=== PATIENT | female | born 1990 | race Caucasian/White ===

== ENCOUNTER 2016-08-10 08:17 | Emergency (ER) | payer SELFPAY ==
[~2016-08-10] VITALS: Ht 170.2 cm; Wt 69.0 kg
[2016-08-10 08:37] VITALS: BP 111/74
[2016-08-10] MEDS ORDERED: DIPH,PERTUSS(ACELL),TET VAC/PF 0.5 ML IM-VACC ONE ×2 (09:00→12:01)
[2016-08-10] MEDS ORDERED: SODIUM CHLORIDE 0.9% 1,000ML IVBOLUS ONE (09:00)
[2016-08-10] MEDS ORDERED: SODIUM CHLORIDE FLUSH 10ML SYR IVF ONE (09:00)
[2016-08-10 09:17] LABS: HEMOGLOBIN 15.4 g/dL (11.7-16.4)
[2016-08-10 09:27] LABS: ASPARTATE AMINO TRANSFERASE 14 U/L (15-37); BLOOD UREA NITROGEN 12 mg/dL (7-18)
[2016-08-10] MEDS ORDERED: HYDROcodone/APAP 5/325 TABLET PO ONE (10:00)
[2016-08-10] MEDS ORDERED: BACITRACIN ZINC OINT 500U/GM, 0.9 GM ONE (10:04)
[2016-08-10] MEDS ORDERED: HYDROcodone/APAP 5/325 TABLET ONE (10:27)
== END 2016-08-10 12:38 | disposition home or self-care (01) ==
LOC: ED 12:10
DX: R55 Syncope and collapse (principal); S09.90XA Unspecified injury of head, initial encounter; L25.9 Unspecified contact dermatitis, unspecified cause; X58.XXXA Exposure to other specified factors, initial encounter; Y93.89 Activity, other specified; Y92.89 Other specified places as the place of occurrence of the external cause; Y99.9 Unspecified external cause status
CPT/HCPCS: 36415; 70450; 70486; 72125; 73610; 73630; 80053; 84484; 84703; 85025; 90471; 90715; 93005; 96360; 99285; J7030

== ENCOUNTER 2016-08-27 14:29 | Emergency (ER) | payer SELFPAY ==
[2016-08-27] MEDS ORDERED: PLEASE ENTER HEIGHT AND WEIGHT MC SCH (16:24)
[2016-08-27] MEDS ORDERED: ACETAMINOPHEN 325 MG TABLET PO ONE (16:30)
[2016-08-27] MEDS ORDERED: ONDANSETRON ODT 4 MG PO ONE (16:30)
== END 2016-08-27 16:20 | disposition home or self-care (01) ==
LOC: ED 16:14
DX: L02.414 Cutaneous abscess of left upper limb (principal); Z53.21 Procedure and treatment not carried out due to patient leaving prior to being seen by health care provider

== ENCOUNTER 2016-09-06 05:56 | Emergency (ER) | payer SELFPAY ==
[~2016-09-06] VITALS: Ht 165.1 cm; Wt 77.1 kg
[2016-09-06 05:58] VITALS: BP 125/82
[2016-09-06] MEDS ORDERED: PROPARACAINE OPHTH 0.5%, 15ML ONE (06:06)
[2016-09-06] MEDS ORDERED: FLUORESCEIN OPHTHALMIC 1 MG STRIP ONE (06:06)
== END 2016-09-06 07:22 | disposition home or self-care (01) ==
LOC: ED 07:05
DX: S02.81XA Fracture of other specified skull and facial bones, right side, initial encounter for closed fracture (principal); H11.31 Conjunctival hemorrhage, right eye; Z88.6 Allergy status to analgesic agent; W19.XXXA Unspecified fall, initial encounter; Y93.89 Activity, other specified; Y92.89 Other specified places as the place of occurrence of the external cause; Y99.9 Unspecified external cause status
CPT/HCPCS: 70486; 99284

== ENCOUNTER 2016-09-17 08:22 | Emergency (ER) | payer SELFPAY ==
[~2016-09-17] VITALS: Ht 165.1 cm; Wt 75.0 kg
[2016-09-17 08:30] VITALS: BP 120/78
[2016-09-17] MEDS ORDERED: PHENAZOPYRIDINE 200 MG TABLET ONE (09:28)
[2016-09-17] MEDS ORDERED: PHENAZOPYRIDINE 200 MG TABLET PO ONE (09:30)
[2016-09-17 09:40] LABS: HCG UR OBC PASS
[2016-09-17] MEDS ORDERED: CEFTRIAXONE 250 MG ONE (10:51)
[2016-09-17] MEDS ORDERED: LIDOCAINE 1%, 20ML ONE (10:51)
[2016-09-17] MEDS ORDERED: AZITHROMYCIN 500 MG TABLET ONE (10:51)
[2016-09-17] MEDS ORDERED: CEFTRIAXONE 250 MG IM ONE (11:00)
[2016-09-17] MEDS ORDERED: AZITHROMYCIN 500 MG TABLET PO ONE (11:00)
== END 2016-09-17 11:36 | disposition home or self-care (01) ==
LOC: ED 09:21
DX: R30.0 Dysuria (principal); S30.1XXA Contusion of abdominal wall, initial encounter; Z88.1 Allergy status to other antibiotic agents; Z88.6 Allergy status to analgesic agent; F10.120 Alcohol abuse with intoxication, uncomplicated; F17.210 Nicotine dependence, cigarettes, uncomplicated; X58.XXXA Exposure to other specified factors, initial encounter; Y93.89 Activity, other specified; Y99.8 Other external cause status; Y92.89 Other specified places as the place of occurrence of the external cause
CPT/HCPCS: 71101; 81003; 81025; 96372; 99285; J0696

== ENCOUNTER 2016-11-01 03:39 | Emergency (ER) | payer MEDICAID ==
[~2016-11-01] VITALS: Ht 165.1 cm; Wt 73.0 kg
[2016-11-01] MEDS ORDERED: ONDANSETRON 2MG/ML, 2ML ONE (04:14)
[2016-11-01] MEDS ORDERED: KETOROLAC 30 MG/1 ML ONE ×2 (04:14→04:36)
[2016-11-01 04:26] LABS: DAU SCREEN DISCLAIMER
[2016-11-01] MEDS ORDERED: KETOROLAC 30 MG/1 ML IVPush ONE (04:30)
[2016-11-01] MEDS ORDERED: SODIUM CHLORIDE 0.9% 1,000ML IVBOLUS ONE (04:30)
[2016-11-01] MEDS ORDERED: ONDANSETRON 2MG/ML, 2ML IVPush ONE (04:30)
[2016-11-01] MEDS ORDERED: ONDANSETRON ODT 4 MG ONE (04:36)
[2016-11-01 04:49] LABS: HCG UR OBC PASS
[2016-11-01 05:10] LABS: BLOOD UREA NITROGEN 6 mg/dL (7-18)
[2016-11-01 05:13] LABS: ASPARTATE AMINO TRANSFERASE 8 U/L (15-37)
[2016-11-01 07:26] VITALS: BP 101/46
[2016-11-01] MEDS ORDERED: KETOROLAC 30 MG/1 ML IM ONE (07:30)
[2016-11-01] MEDS ORDERED: ONDANSETRON ODT 4 MG PO ONE (07:30)
[2016-11-04] MEDS ORDERED: AZIT250T PO (10:29)
[2016-11-04] MEDS ORDERED: CEFD300C37 PO (10:29)
== END 2016-11-01 07:28 | disposition home or self-care (01) ==
LOC: ED 05:27
DX: R50.9 Fever, unspecified (principal); F15.129 Other stimulant abuse with intoxication, unspecified
CPT/HCPCS: 36415; 71010; 76700; 80053; 80307; 81003; 81025; 83690; 85025; 96372; 99285; J1885; Q0162

== ENCOUNTER 2016-11-06 20:20 | Emergency (ER) | payer MEDICAID ==
[~2016-11-06 20:20] MED LIST: AZIT250T PO; CEFD300C37 PO
== END 2016-11-06 21:06 | disposition left against medical advice (07) ==
LOC: ED 21:00
DX: Z53.21 Procedure and treatment not carried out due to patient leaving prior to being seen by health care provider (principal)

== ENCOUNTER 2017-10-21 11:33 | Emergency (ER) | payer MEDICAID ==
[~2017-10-21] VITALS: Ht 165.1 cm; Wt 74.8 kg
[2017-10-21 11:35] VITALS: BP 102/68
[2017-10-21 12:59] LABS: MICROSCOPIC INDICATED
[2017-10-21 13:00] LABS: CULTURE INDICATED? YES
[2017-10-21] MEDS ORDERED: CEFTRIAXONE 250 MG IM ONE (13:00)
[2017-10-21] MEDS ORDERED: AZITHROMYCIN 500 MG TABLET PO ONE (13:00)
[2017-10-21] MEDS ORDERED: AZITHROMYCIN 500 MG TABLET ONE (13:02)
[2017-10-21] MEDS ORDERED: CEFTRIAXONE 250 MG ONE (13:03)
== END 2017-10-21 14:40 | disposition home or self-care (01) ==
LOC: ED 14:18
DX: N39.0 Urinary tract infection, site not specified (principal)
CPT/HCPCS: 81001; 87077; 87086; 87186; 96372; 99284; J0696

== ENCOUNTER 2018-03-05 11:15 | Emergency (ER) | payer MEDICAID ==
[~2018-03-05] VITALS: Ht 165.1 cm; Wt 76.6 kg
[2018-03-05] MEDS ORDERED: PIPERACILLIN/TAZO/PMX 3.375GM 50 ML IVPB ONE (12:00)
[2018-03-05] MEDS ORDERED: ACETAMINOPHEN 500 MG TABLET PO ONE (12:00)
[2018-03-05] MEDS ORDERED: MORPHINE SULFATE 4 MG/ML, 1ML IVPush PRN (12:00)
[2018-03-05] MEDS ORDERED: SODIUM CHLORIDE 0.9% 1,000ML IVBOLUS ONE (12:00)
[2018-03-05] MEDS ORDERED: PIPERACILLIN/TAZO/PMX 3.375GM 50 ML ONE (12:27)
[2018-03-05] MEDS ORDERED: ACETAMINOPHEN 500 MG TABLET ONE (12:28)
[2018-03-05] MEDS ORDERED: MORPHINE SULFATE 4 MG/ML, 1ML ONE (12:28)
[2018-03-05] MEDS ORDERED: ACETAMINOPHEN 325 MG TABLET ONE (12:39)
[2018-03-05] MEDS ORDERED: ACETAMINOPHEN 325 MG TABLET PO ONE (13:00)
[2018-03-05 13:01] LABS: ALANINE AMINOTRANSFERASE 39 U/L (12-78); ALBUMIN 2.9 g/dL (3.4-5.0); ANION GAP 6 mmol/L (5-15); BASOPHILS % (AUTO) 0 % (0-1); CHLORIDE 104 mmol/L (98-107); CREATININE 0.63 mg/dL (0.55-1.02); EOSINOPHILS % (AUTO) 0 % (1-7); LYMPHOCYTES # (AUTO) 1.12 x10^3/uL (1-3.4); LYMPHOCYTES % (AUTO) 9 % (22-44); MD NO; MEAN CORPUSCULAR HEMOGLOBIN 29.2 pg (27.0-34.8); MEAN CORPUSCULAR HGB CONC 33.9 g/dL (32.4-35.8); MEAN PLATELET VOLUME 8.7 fL (7.4-10.4); MONOCYTES # (AUTO) 0.86 x10^3/uL (0.2-0.8); MONOCYTES % (AUTO) 7 % (2-9); NEUTROPHILS # (AUTO) 10.31 x10^3/uL (1.8-6.8); NEUTROPHILS % (AUTO) 84 % (42-75); PLATELET COUNT 208 x10^3/uL (130-400); RED BLOOD COUNT 4.32 x10^6/uL (3.82-5.3); RED CELL DISTRIBUTION WIDTH 13.1 % (9.6-15.2)
[2018-03-05 13:03] LABS: ALKALINE PHOSPHATASE 81 U/L (45-117); BILIRUBIN,TOTAL 1.1 mg/dL (0.2-1.0); TOTAL PROTEIN 6.7 g/dL (6.4-8.2)
[2018-03-05 14:18] LABS: MICROSCOPIC NOT IND
[2018-03-05 14:22] LABS: CULTURE INDICATED? NO
[2018-03-05 15:25] VITALS: BP 88/45
== END 2018-03-05 15:52 | disposition home or self-care (01) ==
LOC: ED 12:10
DX: L03.114 Cellulitis of left upper limb (principal); F15.10 Other stimulant abuse, uncomplicated; G89.29 Other chronic pain
CPT/HCPCS: 36415; 71045; 80053; 81003; 83605; 84145; 85025; 87040; 87077; 87186; 96365; 96366; 96375; 99285; J2543; J7030

== ENCOUNTER 2018-03-07 05:55 | Inpatient (IN) | payer MEDICAID ==
[~2018-03-07] VITALS: Ht 165.1 cm; Wt 77.9 kg
[2018-03-07] MEDS ORDERED: SODIUM CHLORIDE FLUSH 10ML SYR IVF ONE (06:30)
[2018-03-07] MEDS ORDERED: CEFTRIAXONE PMX 1GM/50ML 50 ML ONE (06:37)
[2018-03-07] MEDS ORDERED: CEFTRIAXONE 1,000 MG in SODIUM CHLORIDE 0.9% 50 ML IVPB ONE (07:00)
[2018-03-07 07:02] LABS: ALBUMIN 3.2 g/dL (3.4-5.0); ANION GAP 6 mmol/L (5-15); CALCIUM 8.2 mg/dL (8.5-10.1); CHLORIDE 108 mmol/L (98-107); CREATININE 0.69 mg/dL (0.55-1.02)
[2018-03-07 07:13] LABS: BASOPHILS # (AUTO) 0.03 x10^3/uL (0-0.1); BASOPHILS % (AUTO) 1 % (0-1); EOSINOPHILS # (AUTO) 0.34 x10^3/uL (0-0.4); EOSINOPHILS % (AUTO) 5 % (1-7); LYMPHOCYTES # (AUTO) 2.25 x10^3/uL (1-3.4); LYMPHOCYTES % (AUTO) 35 % (22-44); MD NO; MEAN CORPUSCULAR HEMOGLOBIN 28.7 pg (27.0-34.8); MEAN CORPUSCULAR HGB CONC 33.4 g/dL (32.4-35.8); MEAN PLATELET VOLUME 8.7 fL (7.4-10.4); MONOCYTES # (AUTO) 0.72 x10^3/uL (0.2-0.8); MONOCYTES % (AUTO) 11 % (2-9); NEUTROPHILS # (AUTO) 3.02 x10^3/uL (1.8-6.8); NEUTROPHILS % (AUTO) 47 % (42-75); PLATELET COUNT 207 x10^3/uL (130-400); RED BLOOD COUNT 4.54 x10^6/uL (3.82-5.3); RED CELL DISTRIBUTION WIDTH 13.8 % (9.6-15.2)
[2018-03-07] MEDS ORDERED: SODIUM CHLORIDE 0.9% 1,000 ML IV SCH (10:32)
[2018-03-07] MEDS ORDERED: ONDANSETRON 2MG/ML, 2ML IVPush PRN (11:00)
[2018-03-07] MEDS ORDERED: KETOROLAC 30 MG/1 ML IV PRN (11:00)
[2018-03-07] MEDS ORDERED: GUAIFENESIN/DM 200-20MG, 10ML UDC PO PRN (11:00)
[2018-03-07] MEDS ORDERED: DOCUSATE 100 MG CAPSULE PO PRN (11:00)
[2018-03-07] MEDS ORDERED: ACETAMINOPHEN 325 MG TABLET PO PRN (11:00)
[2018-03-07] MEDS ORDERED: hydrALAzine 20 MG/ML, 1ML IVPush PRN (11:00)
[2018-03-07] MEDS ORDERED: NICOTINE 14MG/24 HR PATCH.TD24 TD SCH (11:00)
[2018-03-07 11:13] VITALS: BP 101/68
[2018-03-07 14:30] VITALS: BP 102/65
[2018-03-07 15:59] LABS: HCG UR SG 1.018 (1.003-1.030); MICROSCOPIC AUTO
[2018-03-07 16:05] LABS: CULTURE INDICATED? NO
[2018-03-07] MEDS ORDERED: CEFTRIAXONE PMX 2GM/50ML 50 ML IV SCH (18:00)
[2018-03-07 19:19] VITALS: BP 118/77
[2018-03-07] MEDS ORDERED: METHADONE 10 MG TABLET PO SCH (21:00)
== END 2018-03-07 21:21 | disposition left against medical advice (07) | DRG 603 ==
LOC: ED 06:50 → 4WST 08:50
PROVIDERS: ADMIT Internal Medicine; ATTEND Internal Medicine
DX: L03.114 Cellulitis of left upper limb (principal); F11.23 Opioid dependence with withdrawal; R78.81 Bacteremia; L02.414 Cutaneous abscess of left upper limb; R30.0 Dysuria; B96.89 Other specified bacterial agents as the cause of diseases classified elsewhere; R23.4 Changes in skin texture; F17.210 Nicotine dependence, cigarettes, uncomplicated; Z53.21 Procedure and treatment not carried out due to patient leaving prior to being seen by health care provider; Z88.1 Allergy status to other antibiotic agents; Z59.0 Homelessness; Z88.5 Allergy status to narcotic agent; Z82.49 Family history of ischemic heart disease and other diseases of the circulatory system
CPT/HCPCS: 36415; 80048; 81001; 81025; 82040; 83605; 85025; 87040; 96365; G0378; J0696; J1885; J7030

== ENCOUNTER 2018-03-10 12:26 | Inpatient (IN) | payer MEDICAID ==
[~2018-03-10] VITALS: Ht 165.1 cm; Wt 80.2 kg
[2018-03-10 13:44] LABS: MEAN CORPUSCULAR HEMOGLOBIN 29.7 pg (27.0-34.8); MEAN CORPUSCULAR HGB CONC 34.4 g/dL (32.4-35.8); MEAN CORPUSCULAR VOLUME 86.3 fL (80-100); MEAN PLATELET VOLUME 8.4 fL (7.4-10.4); PLATELET COUNT 275 x10^3/uL (130-400); RED BLOOD COUNT 4.41 x10^6/uL (3.82-5.3); RED CELL DISTRIBUTION WIDTH 13.3 % (9.6-15.2)
[2018-03-10 13:51] LABS: ALBUMIN 3.1 g/dL (3.4-5.0); ANION GAP 7 mmol/L (5-15); CALCIUM 8.4 mg/dL (8.5-10.1); CHLORIDE 107 mmol/L (98-107)
[2018-03-10 13:56] LABS: ALANINE AMINOTRANSFERASE 28 U/L (12-78); ALKALINE PHOSPHATASE 93 U/L (45-117); BILIRUBIN,TOTAL 0.7 mg/dL (0.2-1.0); CREATININE 0.73 mg/dL (0.55-1.02); TOTAL PROTEIN 7.4 g/dL (6.4-8.2)
[2018-03-10 14:08] LABS: BASOPHILS # (AUTO) 0.03 x10^3/uL (0-0.1); BASOPHILS % (AUTO) 1 % (0-1); EOSINOPHILS # (AUTO) 0.11 x10^3/uL (0-0.4); EOSINOPHILS % (AUTO) 2 % (1-7); LYMPHOCYTES # (AUTO) 1.51 x10^3/uL (1-3.4); LYMPHOCYTES % (AUTO) 31 % (22-44); MD SCAN; MONOCYTES # (AUTO) 0.33 x10^3/uL (0.2-0.8); MONOCYTES % (AUTO) 7 % (2-9); NEUTROPHILS # (AUTO) 2.84 x10^3/uL (1.8-6.8); NEUTROPHILS % (AUTO) 59 % (42-75)
[2018-03-10] MEDS ORDERED: VANCOMYCIN 1,500 MG in SODIUM CHLORIDE 0.9% 250 ML IV ONE (16:00)
[2018-03-10] MEDS ORDERED: VANCOMYCIN PER PHARMACY MC ONE (16:00)
[2018-03-10] MEDS ORDERED: OMNIPAQUE 350 MG/ML, 100ML BOTTLE ONE (17:06)
[2018-03-10] MEDS ORDERED: IBUPROFEN 600 MG TABLET PO PRN (18:30)
[2018-03-10] MEDS ORDERED: ONDANSETRON ODT 4 MG PO PRN (18:30)
[2018-03-10] MEDS ORDERED: ACETAMINOPHEN 325 MG TABLET PO PRN (18:30)
[2018-03-10] MEDS ORDERED: DOCUSATE 100 MG CAPSULE PO PRN (18:30)
[2018-03-10] MEDS ORDERED: DIPHENHYDRAMINE 25 MG CAPSULE PO PRN (18:30)
[2018-03-10 19:12] VITALS: BP 112/75
[2018-03-10] MEDS: CEFTRIAXONE PMX 1GM/50ML 50 ML IV SCH (19:59)
[2018-03-11] MEDS ORDERED: NICOTINE 21 MG/24 HR PATCH.TD24 TD ONE (00:30)
[2018-03-11] MEDS: METHADONE 10 MG TABLET PO PRN ×2 (00:36→08:08)
[2018-03-11 02:13] VITALS: BP 108/69
[2018-03-11 06:52] VITALS: BP 109/71
[2018-03-11] MEDS: CEFTRIAXONE PMX 1GM/50ML 50 ML IV SCH ×2 (08:08→19:29)
[2018-03-11] MEDS ORDERED: VANCOMYCIN PER PHARMACY MC PRN (08:30)
[2018-03-11] MEDS ORDERED: PHARMACOKINETIC MONITORING MC PRN (09:00)
[2018-03-11] MEDS ORDERED: PHARMACOKINETIC CONSULTATION MC ONE (09:00)
[2018-03-11] MEDS ORDERED: VANCOMYCIN 1,600 MG in SODIUM CHLORIDE 0.9% 250 ML IV SCH (09:00)
[2018-03-11] MEDS ORDERED: DIPHENHYDRAMINE 25 MG CAPSULE PO PRN (11:00)
[2018-03-11 13:45] VITALS: BP 114/77
[2018-03-11 19:23] VITALS: BP 108/70
== END 2018-03-11 20:50 | disposition left against medical advice (07) | DRG 603 ==
LOC: ED 16:31 → EDIP 17:22 → 3NE 18:06
PROVIDERS: ADMIT Internal Medicine; ATTEND Internal Medicine
DX: L03.114 Cellulitis of left upper limb (principal); N39.0 Urinary tract infection, site not specified; F11.23 Opioid dependence with withdrawal; R78.81 Bacteremia; B96.20 Unspecified Escherichia coli [E. coli] as the cause of diseases classified elsewhere; F17.200 Nicotine dependence, unspecified, uncomplicated; I80.9 Phlebitis and thrombophlebitis of unspecified site; F19.10 Other psychoactive substance abuse, uncomplicated; Z53.21 Procedure and treatment not carried out due to patient leaving prior to being seen by health care provider; Z88.1 Allergy status to other antibiotic agents; Z82.49 Family history of ischemic heart disease and other diseases of the circulatory system; Z88.5 Allergy status to narcotic agent
CPT/HCPCS: 36415; 80053; 83605; 84145; 85025; 87040; 96365; G0378; J0696; J3370; Q9967; J7050; Q0163

== ENCOUNTER 2018-07-31 13:19 | Emergency (ER) | payer MEDICAID ==
[~2018-07-31] VITALS: Ht 165.1 cm; Wt 69.0 kg
[2018-07-31] MEDS ORDERED: SODIUM CHLORIDE 0.9% 1,000 ML IV ONE (13:39)
--- NOTE | 2018-07-31 13:43 | NUR ---
PT GUIDO BERGERON FROM THE BUS STATION FOR HEADACHE. PT WITH HX: HEROIN ABUSE. PT STATED SHE LAST USED HEROIN YESTERDAY. PT VERY DROWSY. PT PLACED ON BP AND CONT. PULSE OXIMETER. ASSESSMENT COMPLETED. MD AT BEDSIDE.
[2018-07-31] MEDS ORDERED: BUPRENORPHINE/NALOXONE 8-2MG SL SCH (13:54)
[2018-07-31] MEDS ORDERED: SODIUM CHLORIDE 0.9% 1,000ML IVBOLUS ONE (14:00)
[2018-07-31] MEDS ORDERED: SODIUM CHLORIDE FLUSH 10ML SYR IVF ONE (14:00)
[2018-07-31] MEDS ORDERED: PLEASE ENTER HEIGHT AND WEIGHT MC SCH (14:00)
[2018-07-31] MEDS ORDERED: ONDANSETRON 2MG/ML, 2ML IVPush ONE (14:00)
[2018-07-31 14:47] LABS: BASOPHILS # (AUTO) 0.01 x10^3/uL (0-0.1); BASOPHILS % (AUTO) 0 % (0-1); EOSINOPHILS # (AUTO) 0.03 x10^3/uL (0-0.4); EOSINOPHILS % (AUTO) 1 % (1-7); LYMPHOCYTES # (AUTO) 0.72 x10^3/uL (1-3.4); LYMPHOCYTES % (AUTO) 16 % (22-44); MD NO; MEAN CORPUSCULAR HEMOGLOBIN 27.7 pg (27.0-34.8); MEAN CORPUSCULAR HGB CONC 33.2 g/dL (32.4-35.8); MEAN CORPUSCULAR VOLUME 83.6 fL (80-100); MEAN PLATELET VOLUME 8.7 fL (7.4-10.4); MONOCYTES # (AUTO) 0.06 x10^3/uL (0.2-0.8); MONOCYTES % (AUTO) 1 % (2-9); NEUTROPHILS # (AUTO) 3.79 x10^3/uL (1.8-6.8); NEUTROPHILS % (AUTO) 82 % (42-75); PLATELET COUNT 260 x10^3/uL (130-400); RED BLOOD COUNT 4.76 x10^6/uL (3.82-5.3); RED CELL DISTRIBUTION WIDTH 13.1 % (9.6-15.2)
--- NOTE | 2018-07-31 14:49 | NUR ---
PT TAKEN TO CT.
[2018-07-31 14:55] LABS: ALBUMIN 3.4 g/dL (3.4-5.0); ANION GAP 6 mmol/L (5-15); CALCIUM 8.4 mg/dL (8.5-10.1); CHLORIDE 107 mmol/L (98-107)
[2018-07-31] MEDS ORDERED: ONDANSETRON 2MG/ML, 2ML ONE (14:55)
--- NOTE | 2018-07-31 14:57 | NUR ---
SBAR report received from RN, Thea.
[2018-07-31 15:01] LABS: ALANINE AMINOTRANSFERASE 29 U/L (12-78); ALKALINE PHOSPHATASE 97 U/L (45-117); BILIRUBIN,TOTAL 0.8 mg/dL (0.2-1.0); CREATININE 0.87 mg/dL (0.55-1.02); TOTAL PROTEIN 7.4 g/dL (6.4-8.2)
[2018-07-31 15:02] LABS: ACETAMINOPHEN < 2 mcg/mL (10-30); SALICYLATE LEVEL < 1.7 mg/dL (2.8-20.0)
--- NOTE | 2018-07-31 15:06 | NUR ---
Pt medicaated per MAR, pt resting on gurney, c/o MAGDALENO when prompted, otherwise sleeping. Pt remains on monitors, VSS.
--- NOTE | 2018-07-31 15:08 | NUR ---
Pt aware of need for urine sample. Pt states "I can't pee right now."
--- NOTE | 2018-07-31 15:19 | NUR ---
Dr. Christian at bedside to discuss ED findings and POC.
[2018-07-31 15:53] VITALS: BP 123/78
--- NOTE | 2018-07-31 15:54 | NUR ---
Patient/Caregiver given discharge instructions and they have confirmed that they understand the instructions. Patient ambulatory with steady gait.
== END 2018-07-31 15:55 | disposition home or self-care (01) ==
LOC: ED 14:09
DX: G44.211 Episodic tension-type headache, intractable (principal); L03.113 Cellulitis of right upper limb; F11.20 Opioid dependence, uncomplicated; Z72.9 Problem related to lifestyle, unspecified; Z63.8 Other specified problems related to primary support group
CPT/HCPCS: 36415; 70450; 80053; 80307; 80329; 83605; 84145; 84703; 85025; 87040; 93005; 96374; 99284; J2405; J7030; G0480

== ENCOUNTER 2018-10-23 14:07 | Observation (INO) | payer MEDICAID ==
[~2018-10-23] VITALS: Ht 165.1 cm; Wt 72.7 kg
[2018-10-23] MEDS ORDERED: PROMETHAZINE 25 MG/ML, 1ML IM ONE (14:30)
[2018-10-23] MEDS ORDERED: SODIUM CHLORIDE FLUSH 10ML SYR IVF ONE (14:30)
[2018-10-23] MEDS ORDERED: SODIUM CHLORIDE 0.9% 1,000ML IVBOLUS ONE (14:30)
[2018-10-23] MEDS ORDERED: LOPERAMIDE 2 MG CAPSULE PO ONE (14:30)
[2018-10-23] MEDS ORDERED: PROMETHAZINE 25 MG/ML, 1ML ONE (14:31)
[2018-10-23] MEDS ORDERED: LOPERAMIDE 2 MG CAPSULE ONE (14:31)
[2018-10-23 14:37] LABS: BASOPHILS # (AUTO) 0.04 x10^3/uL (0-0.1); BASOPHILS % (AUTO) 0 % (0-1); EOSINOPHILS % (AUTO) 0 % (1-7); LYMPHOCYTES # (AUTO) 0.41 x10^3/uL (1-3.4); LYMPHOCYTES % (AUTO) 4 % (22-44); MD NO; MEAN CORPUSCULAR HEMOGLOBIN 27.6 pg (27.0-34.8); MEAN CORPUSCULAR HGB CONC 32.7 g/dL (32.4-35.8); MEAN CORPUSCULAR VOLUME 84.3 fL (80-100); MEAN PLATELET VOLUME 8.6 fL (7.4-10.4); MONOCYTES # (AUTO) 0.31 x10^3/uL (0.2-0.8); MONOCYTES % (AUTO) 3 % (2-9); NEUTROPHILS # (AUTO) 8.63 x10^3/uL (1.8-6.8); NEUTROPHILS % (AUTO) 92 % (42-75); PLATELET COUNT 190 x10^3/uL (130-400); RED BLOOD COUNT 4.21 x10^6/uL (3.82-5.3); RED CELL DISTRIBUTION WIDTH 14.1 % (9.6-15.2)
[2018-10-23 14:49] LABS: ALANINE AMINOTRANSFERASE 15 U/L (12-78); ALBUMIN 2.6 g/dL (3.4-5.0); ANION GAP 11 mmol/L (5-15); CALCIUM 8.1 mg/dL (8.5-10.1); CHLORIDE 100 mmol/L (98-107); CREATININE 1.08 mg/dL (0.55-1.02)
[2018-10-23 14:54] LABS: ALKALINE PHOSPHATASE 93 U/L (45-117); BILIRUBIN,TOTAL 0.7 mg/dL (0.2-1.0); TOTAL PROTEIN 7.5 g/dL (6.4-8.2)
[2018-10-23] MEDS ORDERED: POTASSIUM CHLORIDE 40 MEQ in SODIUM CHLORIDE 0.9% 500 ML IV ONE ×2 (15:00→16:30)
[2018-10-23] MEDS ORDERED: POTASSIUM CHLORIDE 10% 40 MEQ/30 ML UDC PO ONE (15:00)
--- NOTE | 2018-10-23 15:03 | NUR ---
K 2.5, NOTIFIED. PT TO BE ADMITTED
--- NOTE | 2018-10-23 15:46 | NUR ---
IV K STARTED @130ML/H, PT INCONTINENT OF STOOL AND URINE, PT CHANGED AND CLEANED
[2018-10-23] MEDS ORDERED: ACETAMINOPHEN 500 MG TABLET ONE (15:58)
[2018-10-23] MEDS ORDERED: ACETAMINOPHEN 500 MG TABLET PO ONE (16:00)
[2018-10-23 16:04] LABS: HCT (SEDRATE) 35.6 % (34.6-47.8)
--- NOTE | 2018-10-23 16:04 | NUR ---
hospitalist at bedside, report to chao sims
[2018-10-23] MEDS ORDERED: NS + 20MEQ KCL 1,000 ML IV SCH (16:17)
[2018-10-23] MEDS ORDERED: ONDANSETRON 2MG/ML, 2ML IVPush PRN (16:30)
[2018-10-23] MEDS ORDERED: BACLOFEN 10 MG TABLET PO SCH (16:30)
[2018-10-23] MEDS ORDERED: ACETAMINOPHEN 325 MG TABLET PO PRN (16:30)
[2018-10-23] MEDS ORDERED: hydrALAzine 20 MG/ML, 1ML IVPush PRN (16:30)
[2018-10-23 16:52] VITALS: BP 106/66
[2018-10-23] MEDS ORDERED: ENOXAPARIN 40 MG/0.4 ML SQ SCH (17:00)
[2018-10-24] MEDS ORDERED: PANTOPROZOLE 40MG TABLET PO SCH (07:30)
== END 2018-10-23 18:00 | disposition left against medical advice (07) ==
LOC: ED 14:41 → EDIP 15:16 → INTOOBSV 15:16 → SUATTDRO 15:31 → 4WST 16:22
PROVIDERS: ADMIT Internal Medicine; ATTEND Internal Medicine
DX: F11.23 Opioid dependence with withdrawal (principal); N17.0 Acute kidney failure with tubular necrosis; E87.6 Hypokalemia; F17.200 Nicotine dependence, unspecified, uncomplicated; R78.81 Bacteremia
CPT/HCPCS: 36415; 71045; 80053; 83605; 84703; 85025; 85651; 86140; 87040; 87077; 87147; 87186; 93005; 96365; 96366; 96372; 99291; G0378; J2550; J3480; J7030; J7040

== ENCOUNTER 2019-12-01 19:51 | Emergency (ER) | payer MEDICAID ==
[~2019-12-01] VITALS: Ht 165.1 cm; Wt 82.0 kg
[2019-12-01 20:01] VITALS: BP 127/46
[2019-12-01] MEDS ORDERED: IBUPROFEN 600 MG TABLET PO ONE (22:00)
--- NOTE | 2019-12-01 22:30 | NUR ---
crutches given pt teaching done,
== END 2019-12-01 22:32 | disposition home or self-care (01) ==
LOC: ED 20:56
DX: M79.661 Pain in right lower leg (principal); M79.672 Pain in left foot; Z88.1 Allergy status to other antibiotic agents; Z88.5 Allergy status to narcotic agent
CPT/HCPCS: 99284

== ENCOUNTER 2019-12-11 15:30 | Inpatient (IN) | payer MEDICAID ==
[~2019-12-11] VITALS: Ht 165.1 cm; Wt 87.5 kg
--- NOTE | 2019-12-11 15:51 | NUR ---
DISEASE CASE MANAGER RN: PT AMBULATORY WITH STEADY GAIT TO ROOM AT THIS TIME.. BRIA
--- NOTE | 2019-12-11 15:53 | NUR ---
THIS IS A 29 YEAR OLD FEMALE WHO LEFT AMA FROM [facility] TODAY DUE TO "THEY DONT TAKE CARE OF PATIENTS VERY WELL". PT C/O OF LT FOOT INFECTION. STATES +MRSA WD.
[2019-12-11] MEDS ORDERED: HYDROmorphone 2 MG/ML, 1ML ONE (16:27)
[2019-12-11] MEDS ORDERED: ONDANSETRON 2MG/ML, 2ML ONE (16:27)
[2019-12-11] MEDS ORDERED: SODIUM CHLORIDE FLUSH 10ML SYR IVF ONE (16:30)
[2019-12-11] MEDS ORDERED: ONDANSETRON 2MG/ML, 2ML IVPush ONE (16:30)
[2019-12-11] MEDS ORDERED: PIPERACILLIN/TAZO/PMX 3.375GM 50 ML IVPB ONE (16:30)
[2019-12-11] MEDS ORDERED: VANCOMYCIN 1,800 MG in SODIUM CHLORIDE 0.9% 250 ML IV ONE (16:30)
[2019-12-11] MEDS ORDERED: VANCOMYCIN PER PHARMACY MC ONE (16:30)
[2019-12-11] MEDS: HYDROmorphone 2 MG/ML, 1ML IVPush PRN ×2 (17:25→19:12)
[2019-12-11] MEDS ORDERED: ACETAMINOPHEN 325 MG TABLET PO PRN (17:30)
[2019-12-11] MEDS ORDERED: hydrALAzine 20 MG/ML, 1ML IVPush PRN (17:30)
[2019-12-11] MEDS ORDERED: ONDANSETRON 2MG/ML, 2ML IVPush PRN (17:30)
--- NOTE | 2019-12-11 17:46 | NUR ---
EJ ON RIGHT SIDE #20 PLACED WITH GOOD BLOOD RETURN, LABS AND BLOOD CULTURES DRAWN PRIOR TO ANTIBX. MEDICATED PER ORDERS PT STATES PAIN IS 10/10.
[2019-12-11 17:49] LABS: HCT (SEDRATE) 28.1 % (34.6-47.8)
[2019-12-11 17:49] LABS: BASOPHILS # (AUTO) 0.03 x10^3/uL (0-0.1); BASOPHILS % (AUTO) 0 % (0-1); EOSINOPHILS # (AUTO) 0.19 x10^3/uL (0-0.4); EOSINOPHILS % (AUTO) 1 % (1-7); LYMPHOCYTES # (AUTO) 2.03 x10^3/uL (1-3.4); LYMPHOCYTES % (AUTO) 15 % (22-44); MD NO; MEAN CORPUSCULAR HEMOGLOBIN 27.6 pg (27.0-34.8); MEAN CORPUSCULAR HGB CONC 32.5 g/dL (32.4-35.8); MEAN CORPUSCULAR VOLUME 84.7 fL (80-100); MEAN PLATELET VOLUME 8.5 fL (7.4-10.4); MONOCYTES # (AUTO) 0.62 x10^3/uL (0.2-0.8); MONOCYTES % (AUTO) 5 % (2-9); NEUTROPHILS # (AUTO) 10.82 x10^3/uL (1.8-6.8); NEUTROPHILS % (AUTO) 79 % (42-75); PLATELET COUNT 445 x10^3/uL (130-400); RED BLOOD COUNT 3.33 x10^6/uL (3.82-5.3); RED CELL DISTRIBUTION WIDTH 14.9 % (9.6-15.2)
[2019-12-11 18:00] LABS: ALBUMIN 2.3 g/dL (3.4-5.0); ANION GAP 7 mmol/L (5-15); CALCIUM 8.3 mg/dL (8.5-10.1); CHLORIDE 108 mmol/L (98-107); CREATININE 0.58 mg/dL (0.55-1.02)
--- NOTE | 2019-12-11 18:11 | NUR ---
REPORT BRIE QUINTANA, PLAN OF CARE DISCUSSED
[2019-12-11] MEDS: VANCOMYCIN PER PHARMACY MC SCH (19:00)
[2019-12-11] MEDS ORDERED: PHARMACOKINETIC MONITORING MC PRN (19:00)
[2019-12-11] MEDS ORDERED: PHARMACOKINETIC CONSULTATION MC ONE (19:00)
[2019-12-11 19:30] VITALS: BP 116/76
[2019-12-11] MEDS: KETOROLAC 30 MG/1 ML IV PRN (20:16)
[2019-12-11 21:15] LABS: AMPHETAMINE SCREEN, URINE Positive (Negative); BARBITURATE SCREEN, URINE Negative (Negative); BENZODIAZEPINE SCREEN, URINE Negative (Negative); CANNABINOID SCREEN, URINE Negative (Negative); COCAINE SCREEN, URINE Negative (Negative); METHADONE SCREEN, URINE Negative (Negative); OPIATE SCREEN, URINE Positive (Negative)
[2019-12-12 00:41] VITALS: BP 131/73
[2019-12-12] MEDS: KETOROLAC 30 MG/1 ML IV PRN ×2 (03:28→17:52)
[2019-12-12] MEDS: VANCOMYCIN 1,800 MG in SODIUM CHLORIDE 0.9% 250 ML IV SCH ×2 (05:21→17:52)
[2019-12-12 06:34] VITALS: BP 128/76
[2019-12-12 06:59] LABS: BASOPHILS # (AUTO) 0.03 x10^3/uL (0-0.1); BASOPHILS % (AUTO) 0 % (0-1); EOSINOPHILS # (AUTO) 0.35 x10^3/uL (0-0.4); EOSINOPHILS % (AUTO) 4 % (1-7); LYMPHOCYTES % (AUTO) 17 % (22-44); MD NO; MEAN CORPUSCULAR HEMOGLOBIN 27.7 pg (27.0-34.8); MEAN CORPUSCULAR HGB CONC 33.1 g/dL (32.4-35.8); MEAN CORPUSCULAR VOLUME 83.6 fL (80-100); MEAN PLATELET VOLUME 8.2 fL (7.4-10.4); MONOCYTES # (AUTO) 0.51 x10^3/uL (0.2-0.8); MONOCYTES % (AUTO) 5 % (2-9); NEUTROPHILS # (AUTO) 7.38 x10^3/uL (1.8-6.8); NEUTROPHILS % (AUTO) 74 % (42-75); PLATELET COUNT 419 x10^3/uL (130-400); RED BLOOD COUNT 3.29 x10^6/uL (3.82-5.3); RED CELL DISTRIBUTION WIDTH 14.6 % (9.6-15.2)
[2019-12-12 07:08] LABS: ANION GAP 8 mmol/L (5-15); CALCIUM 8.1 mg/dL (8.5-10.1); CHLORIDE 107 mmol/L (98-107); CREATININE 0.52 mg/dL (0.55-1.02)
[2019-12-12] MEDS: VANCOMYCIN PER PHARMACY MC SCH (07:34)
[2019-12-12] MEDS: morphine SULFATE 10 MG/ML, 1ML IVPush PRN ×2 (09:05→16:00)
[2019-12-12 13:25] VITALS: BP 112/65
[2019-12-12 22:34] VITALS: BP 110/54
[2019-12-13] MEDS: KETOROLAC 30 MG/1 ML IV PRN (01:01)
[2019-12-13 02:00] VITALS: BP 133/69
[2019-12-13] MEDS: morphine SULFATE 10 MG/ML, 1ML IVPush PRN (05:09)
[2019-12-13] MEDS: VANCOMYCIN 1,800 MG in SODIUM CHLORIDE 0.9% 250 ML IV SCH (05:21)
[2019-12-13] MEDS: VANCOMYCIN PER PHARMACY MC SCH (07:29)
== END 2019-12-13 08:25 | disposition left against medical advice (07) | DRG 539 ==
LOC: ED 16:28 → SUATTDRO 16:47 → EDIP 17:45 → 3N 18:34
PROVIDERS: ADMIT Hospitalist; ATTEND Hospitalist
DX: M86.172 Other acute osteomyelitis, left ankle and foot (principal); E43 Unspecified severe protein-calorie malnutrition; L03.116 Cellulitis of left lower limb; Z53.29 Procedure and treatment not carried out because of patient's decision for other reasons; F17.210 Nicotine dependence, cigarettes, uncomplicated; D72.829 Elevated white blood cell count, unspecified; F19.10 Other psychoactive substance abuse, uncomplicated; Z88.0 Allergy status to penicillin; Z88.5 Allergy status to narcotic agent; Z86.19 Personal history of other infectious and parasitic diseases; Z68.32 Body mass index [BMI] 32.0-32.9, adult
CPT/HCPCS: 36415; 36573; 80048; 80074; 80202; 80307; 82040; 83605; 85025; 85651; 86704; 86705; 86706; 86707; 86803; 87040; 87340; 87350; 87521; G0378; J1170; J1885; J2405; J3370; C1751; J2270; J7050

== ENCOUNTER 2021-01-09 18:14 | Inpatient (IN) | payer MEDICAID ==
[~2021-01-09] VITALS: Ht 165.1 cm; Wt 105.8 kg
[2021-01-09] MEDS ORDERED: ONDANSETRON 2MG/ML, 2ML ONE (18:17)
--- NOTE | 2021-01-09 18:26 | NUR ---
PT BIB EMS FOR HEROIN OD. PT WAS FOUND DOWN AND UNRESPONSIVE IN BATHROOM AT R. BYSTANDER STARTED CPR. EMS ARRIVED AND FOUND PT WITH 2 NEEDLES IN HER ARMS. EMS ADM 1MG NARCAN IN 2 0.5MG DOSES IM. PT HAD POSITIVE RESPONSE - BEGAN BREATHING ON HER OWN AND WOKE UP. PT ARRIVED ON 15 LITERS NON REBREATHER. PT IS 8 MONTHS . . LnD NURSE DOWN TO ASSESS FETUS - "THE BABY SEEMS TO BE DOING FINE" HR 155.
[2021-01-09] MEDS ORDERED: ONDANSETRON 2MG/ML, 2ML IVPush ONE (18:30)
[2021-01-09] MEDS ORDERED: ALBUTEROL/IPRATROPIUM 2.5MG/0.5MG, 3 ML NEB ONE (18:30)
[2021-01-09] MEDS ORDERED: SODIUM CHLORIDE 0.9% 1,000ML IVBOLUS ONE (18:30)
--- NOTE | 2021-01-09 18:30 | NUR ---
PT GIVEN BREATHING TX. TOLERATED WELL.
--- NOTE | 2021-01-09 18:31 | NUR ---
MOTHER CONNECTED TO MONITOR. LnD NURSE BEDSIDE
[2021-01-09] MEDS ORDERED: AZITHROMYCIN 500 MG in SODIUM CHLORIDE 0.9% 250 ML IV ONE (19:00)
[2021-01-09] MEDS ORDERED: CEFTRIAXONE 1,000 MG in DEXTROSE 5% 50 ML IVPB ONE (19:00)
[2021-01-09 19:07] LABS: BASOPHILS % (AUTO) 0 % (0-1); EOSINOPHILS % (AUTO) 1 % (1-7); LYMPHOCYTES % (AUTO) 13 % (22-44); MEAN CORPUSCULAR HEMOGLOBIN 25.8 pg (27.0-34.8); MEAN CORPUSCULAR HGB CONC 32.6 g/dL (32.4-35.8); MEAN PLATELET VOLUME 8.3 fL (7.4-10.4); MONOCYTES % (AUTO) 5 % (2-9); NEUTROPHILS % (AUTO) 81 % (42-75); PLATELET COUNT 282 x10^3/uL (130-400); RED BLOOD COUNT 3.29 x10^6/uL (3.82-5.3); RED CELL DISTRIBUTION WIDTH 14.9 % (9.6-15.2)
[2021-01-09 19:19] LABS: ALANINE AMINOTRANSFERASE 23 U/L (12-78); ALBUMIN 1.5 g/dL (3.4-5.0); ANION GAP 7 mmol/L (5-15); CALCIUM 7.9 mg/dL (8.5-10.1); CHLORIDE 110 mmol/L (98-107); CREATININE 0.57 mg/dL (0.55-1.02)
[2021-01-09 19:24] LABS: ALKALINE PHOSPHATASE 177 U/L (45-117); BILIRUBIN,TOTAL 0.4 mg/dL (0.2-1.0); TOTAL PROTEIN 5.9 g/dL (6.4-8.2)
[2021-01-09] MEDS ORDERED: LACTATED RINGERS 1,000 ML IVBOLUS ONE (19:30)
[2021-01-09 19:35] LABS: AMPHETAMINE SCREEN, URINE Positive (Negative); BARBITURATE SCREEN, URINE Negative (Negative); BENZODIAZEPINE SCREEN, URINE Negative (Negative); CANNABINOID SCREEN, URINE Negative (Negative); COCAINE SCREEN, URINE Negative (Negative); METHADONE SCREEN, URINE Negative (Negative); OPIATE SCREEN, URINE Positive (Negative)
--- NOTE | 2021-01-09 19:41 | NUR ---
fhr tracing taken up to Dr Mehta to read, fhts 160 with decreased variability, 10x10 decels with no accels, states pt needs continous monitoring, catagory 2 tracing, pt denies cramping
--- NOTE | 2021-01-09 20:21 | NUR ---
efm reapplied post Ultrasound, fhts 134
--- NOTE | 2021-01-09 20:30 | NUR ---
TP RN: TEST DESIGNER STATES PT IS APPROPRAITE FOR L&D FLOOR FOR LEVEL OF CARE. DR VENEGAS STATES PT DOES NOT NEED CARDIAC MONITORING, HOWEVER PT FETUS NEEDS CONTINUOUS FHT MONITORING. L&D WELDER BOILERMAKER NOTIFIED VIA PHONE.
--- NOTE | 2021-01-09 20:35 | NUR ---
Dr Friedman visits, efm tracing reviewed, baseline 130s, catagory II tracing with decreaced variability, 10x10 decels, 10x10 accels
[2021-01-09] MEDS ORDERED: LABETALOL 5MG/ML, 20ML IVPush PRN (21:00)
[2021-01-09] MEDS ORDERED: ACETAMINOPHEN 325 MG TABLET PO PRN (21:00)
[2021-01-09] MEDS ORDERED: ONDANSETRON ODT 4 MG PO PRN (21:00)
[2021-01-09] MEDS ORDERED: SODIUM CHLORIDE 0.9% 1,000ML IV ONE (21:00)
[2021-01-09] MEDS ORDERED: DOCUSATE 100 MG CAPSULE PO PRN (21:00)
[2021-01-09] MEDS ORDERED: ONDANSETRON 2MG/ML, 2ML IVPush PRN ×2 (21:00→22:00)
[2021-01-09] MEDS: LACTATED RINGERS 1,000 ML IV SCH (21:20)
[2021-01-09] MEDS: CEFTRIAXONE 1,000 MG in DEXTROSE 5% 50 ML IVPB SCH (21:50)
[2021-01-09] MEDS ORDERED: SODIUM CITRATE/CITRIC ACID 30 ML UDC PO PRN (22:00)
[2021-01-09] MEDS ORDERED: CALCIUM CARBONATE 500 MG TAB.CHEW PO PRN (22:00)
[2021-01-09] MEDS ORDERED: METOCLOPRAMIDE 5 MG/ML, 2ML IVPush PRN (22:00)
[2021-01-09] MEDS ORDERED: D5%-LACTATED RINGERS 1,000 ML IV SCH (22:00)
[2021-01-09] MEDS ORDERED: NEWBORN KIT ONE (22:08)
[2021-01-10] MEDS ORDERED: SODIUM CITRATE/CITRIC ACID 15 ML UDC ONE (01:23)
[2021-01-10] MEDS ORDERED: METOCLOPRAMIDE 5 MG/ML, 2ML IV ONE (01:30)
[2021-01-10] MEDS ORDERED: LACTATED RINGERS 1,000 ML IVBOLUS ONE (01:30)
[2021-01-10] MEDS ORDERED: SODIUM CITRATE/CITRIC ACID 30 ML UDC PO ONE (01:30)
[2021-01-10] MEDS ORDERED: ONDANSETRON 2MG/ML, 2ML ONE (01:46)
[2021-01-10] MEDS ORDERED: KETOROLAC 30 MG/1 ML ONE (01:46)
[2021-01-10] MEDS ORDERED: CEFAZOLIN 1,000 MG ONE (01:46)
[2021-01-10] MEDS ORDERED: FENTANYL PF 100 MCG/2ML ONE (01:46)
[2021-01-10] MEDS ORDERED: EPHEDRINE 50 MG/ML, 1ML ONE (01:46)
[2021-01-10] MEDS ORDERED: DEXAMETHASONE 4 MG/ML, 1ML ONE (01:46)
[2021-01-10] MEDS ORDERED: PHENYLEPHRINE 10 MG/ML ONE (01:46)
[2021-01-10] MEDS ORDERED: OXYTOCIN 10 UNITS/ML, 1ML ONE (01:46)
[2021-01-10] MEDS ORDERED: LABETALOL 5MG/ML, 20ML IV PRN (02:00)
[2021-01-10] MEDS ORDERED: MIDAZOLAM 1 MG/ML, 2ML IV PRN (02:00)
[2021-01-10] MEDS ORDERED: ALBUTEROL SULFATE 2.5 MG/3 ML NPPB PRN (02:00)
[2021-01-10] MEDS ORDERED: EPHEDRINE 50 MG/ML, 1ML IVPush PRN (02:00)
[2021-01-10] MEDS ORDERED: OXYcodone 5 MG/5 ML ORAL.SOL UDC PO PRN (02:00)
[2021-01-10] MEDS ORDERED: METOPROLOL 1 MG/ML, 5ML IV PRN (02:00)
[2021-01-10] MEDS ORDERED: PROMETHAZINE 25 MG/ML, 1ML IV PRN (02:00)
[2021-01-10] MEDS ORDERED: FENTANYL PF 100 MCG/2ML IV PRN (02:00)
[2021-01-10] MEDS ORDERED: hydrALAzine 20 MG/ML, 1ML IV PRN (02:00)
[2021-01-10] MEDS ORDERED: MEPERIDINE/PF 25MG/0.5ML IVPush PRN (02:00)
[2021-01-10] MEDS ORDERED: ALBUTEROL/IPRATROPIUM 2.5MG/0.5MG, 3 ML NPPB PRN (02:00)
[2021-01-10] MEDS ORDERED: HYDROcodone/APAP 7.5-325MG/15ML UDC PO PRN (02:00)
[2021-01-10] MEDS ORDERED: ONDANSETRON 2MG/ML, 2ML IVPush PRN (02:00)
[2021-01-10 04:37] LABS: MICROSCOPIC INDICATED
[2021-01-10] MEDS ORDERED: METHADONE ORAL.SOLN 1 MG/ML PO SCH (05:30)
[2021-01-10] MEDS ORDERED: METHADONE INTENSOL 10 MG/ML ORAL CONC ONE (05:32)
[2021-01-10] MEDS ORDERED: OXYcodone/APAP 5/325MG TABLET ONE (06:07)
[2021-01-10] MEDS: OXYcodone/APAP 5/325MG TABLET PO PRN ×2 (06:15→12:30)
[2021-01-10] MEDS ORDERED: OXYcodone/APAP 5/325MG TABLET PO ONE (06:30)
[2021-01-10] MEDS ORDERED: METHADONE INTENSOL 10 MG/ML ORAL CONC PO SCH (09:00)
[2021-01-10 11:22] LABS: ANION GAP 7 mmol/L (5-15); CALCIUM 7.8 mg/dL (8.5-10.1); CHLORIDE 111 mmol/L (98-107)
[2021-01-10 11:25] LABS: CREATININE 0.46 mg/dL (0.55-1.02)
[2021-01-10 12:22] LABS: BASOPHILS % (AUTO) 0 % (0-1); EOSINOPHILS % (AUTO) 0 % (1-7); LYMPHOCYTES % (AUTO) 14 % (22-44); MEAN CORPUSCULAR HEMOGLOBIN 25.6 pg (27.0-34.8); MEAN CORPUSCULAR HGB CONC 32.7 g/dL (32.4-35.8); MEAN PLATELET VOLUME 8.5 fL (7.4-10.4); MONOCYTES % (AUTO) 6 % (2-9); NEUTROPHILS % (AUTO) 79 % (42-75); PLATELET COUNT 231 x10^3/uL (130-400)
[2021-01-10] MEDS: LACTATED RINGERS 1,000 ML IV SCH (14:15)
[2021-01-10] MEDS: IRON SUCROSE COMPLEX 100MG/5ML IV SCH (14:27)
[2021-01-10] MEDS ORDERED: METHADONE 10 MG TABLET PO ONE (19:30)
[2021-01-10] MEDS: CEFTRIAXONE 1,000 MG in DEXTROSE 5% 50 ML IVPB SCH (21:35)
[2021-01-11] MEDS ORDERED: OXYcodone/APAP 10/325MG TABLET ONE (05:11)
[2021-01-11] MEDS ORDERED: SODIUM CITRATE/CITRIC ACID 15 ML UDC ONE (06:32)
[2021-01-11] MEDS ORDERED: CEFAZOLIN 1,000 MG ONE (06:34)
[2021-01-11] MEDS ORDERED: FENTANYL PF 100 MCG/2ML ONE ×4 (06:37→08:59)
[2021-01-11] MEDS ORDERED: SUCCINYLCHOLINE 20 MG/ML, 10ML ONE (06:45)
[2021-01-11] MEDS ORDERED: KETAMINE 10 MG/ML, 20ML ONE (07:35)
[2021-01-11] MEDS ORDERED: ALBUTEROL SULFATE 2.5 MG/3 ML ONE (08:26)
[2021-01-11] MEDS ORDERED: OXYcodone IR 5MG TABLET PO PRN (08:30)
[2021-01-11] MEDS ORDERED: MISOPROSTOL 200 MCG TABLET PR PRN (08:30)
[2021-01-11] MEDS ORDERED: morphine SULFATE 10 MG/ML, 1ML IVPush PRN (08:30)
[2021-01-11] MEDS ORDERED: LACTATED RINGERS 1,000 ML IV SCH ×2 (08:30)
[2021-01-11] MEDS ORDERED: TRANEXAMIC ACID 1,000 MG in SODIUM CHLORIDE 0.9% 100 ML IVPB ONE (08:30)
[2021-01-11] MEDS ORDERED: DOCUSATE 100 MG CAPSULE PO PRN (08:30)
[2021-01-11] MEDS ORDERED: CARBOPROST TROMETHAMINE 250 MCG/ML, 1ML IM PRN (08:30)
[2021-01-11] MEDS ORDERED: METHYLERGONOVINE 0.2 MG/ML IM PRN (08:30)
[2021-01-11] MEDS ORDERED: ONDANSETRON 2MG/ML, 2ML IV PRN (08:30)
[2021-01-11] MEDS ORDERED: SIMETHICONE 80 MG CHEW TAB PO PRN (08:30)
[2021-01-11] MEDS: METHADONE INTENSOL 10 MG/ML ORAL CONC PO SCH ×2 (09:00→09:16)
[2021-01-11] MEDS: PRENATAL VIT/IRON/FA 1 EACH TABLET PO SCH (09:00)
[2021-01-11] MEDS: METHADONE 40 MG TABLET.SOL PO SCH ×2 (09:16→12:14)
[2021-01-11] MEDS ORDERED: HYDROmorphone 2 MG/ML, 1ML ONE (09:23)
[2021-01-11] MEDS: HYDROmorphone 2 MG/ML, 1ML IVPush PRN ×2 (09:26→10:01)
[2021-01-11] MEDS: OXYTOCIN 30U/ 0.9% NaCL 500ML 500 ML IV SCH ×2 (09:33→18:30)
[2021-01-11] MEDS ORDERED: OXYcodone 5 MG/5 ML ORAL.SOL UDC ONE (09:41)
[2021-01-11] MEDS ORDERED: MEPERIDINE/PF 25MG/ML,1ML ONE (10:02)
[2021-01-11] MEDS ORDERED: KETOROLAC 30 MG/1 ML ONE (10:07)
[2021-01-11] MEDS ORDERED: KETOROLAC 30 MG/1 ML IVPush PRN (10:30)
[2021-01-11] MEDS: OXYcodone/APAP 5/325MG TABLET PO PRN ×3 (12:13→21:41)
[2021-01-11 14:40] VITALS: BP 113/72
[2021-01-11] MEDS: OXYcodone IR 5MG TABLET PO PRN (18:22)
[2021-01-11 18:57] VITALS: BP 115/72
[2021-01-11] MEDS: MORPHINE SULFATE 4 MG/ML, 1ML IVPush PRN (19:51)
[2021-01-12 00:33] VITALS: BP 124/77
[2021-01-12 01:18] VITALS: BP 122/76
[2021-01-12] MEDS: MORPHINE SULFATE 4 MG/ML, 1ML IVPush PRN (01:20)
[2021-01-12] MEDS: OXYTOCIN 30U/ 0.9% NaCL 500ML 500 ML IV SCH (04:30)
[2021-01-12] MEDS: CEFTRIAXONE 1,000 MG in DEXTROSE 5% 50 ML IVPB SCH (04:50)
[2021-01-12] MEDS: OXYcodone IR 5MG TABLET PO PRN (05:04)
[2021-01-12 06:45] VITALS: BP 112/70
[2021-01-12 07:14] VITALS: BP 131/85
[2021-01-12] MEDS: IRON SUCROSE COMPLEX 100MG/5ML IV SCH ×2 (09:00→10:52)
[2021-01-12] MEDS: PRENATAL VIT/IRON/FA 1 EACH TABLET PO SCH (09:00)
[2021-01-12] MEDS ORDERED: FUROSEMIDE 20 MG/2 ML IV ONE (09:30)
[2021-01-12] MEDS ORDERED: METHADONE 40 MG TABLET.SOL PO SCH (11:00)
== END 2021-01-12 11:50 | disposition left against medical advice (07) | DRG 786 ==
LOC: ED 20:12 → SUATTDRO 20:20 → ED 20:30 → EDIP 20:38 → LDIP 21:15 → 4WST 01-11 10:50
PROVIDERS: ADMIT Hospitalist; ATTEND Internal Medicine
PROC: 5A12012 Performance of Cardiac Output, Single, Manual (ICD-10-PCS; 2021-01-09)
PROC: 10D00Z1 Extraction of Products of Conception, Low, Open Approach (ICD-10-PCS; principal; 2021-01-11 07:45)
DX: O9A.22 Injury, poisoning and certain other consequences of external causes complicating childbirth (principal); J96.01 Acute respiratory failure with hypoxia; J69.0 Pneumonitis due to inhalation of food and vomit; A41.9 Sepsis, unspecified organism; G92 Toxic encephalopathy; F11.23 Opioid dependence with withdrawal; O99.354 Diseases of the nervous system complicating childbirth; O99.324 Drug use complicating childbirth; Z3A.38 38 weeks gestation of pregnancy; O99.52 Diseases of the respiratory system complicating childbirth; O99.214 Obesity complicating childbirth; O99.334 Smoking (tobacco) complicating childbirth; T40.1X1A Poisoning by heroin, accidental (unintentional), initial encounter; Z20.822 Contact with and (suspected) exposure to COVID-19; Z37.0 Single live birth; Z59.0 Homelessness; O99.02 Anemia complicating childbirth; O76 Abnormality in fetal heart rate and rhythm complicating labor and delivery; O77.0 Labor and delivery complicated by meconium in amniotic fluid; D50.9 Iron deficiency anemia, unspecified; D63.8 Anemia in other chronic diseases classified elsewhere; F15.90 Other stimulant use, unspecified, uncomplicated; F17.210 Nicotine dependence, cigarettes, uncomplicated; K59.00 Constipation, unspecified; O34.211 Maternal care for low transverse scar from previous cesarean delivery; Z53.29 Procedure and treatment not carried out because of patient's decision for other reasons; Z86.79 Personal history of other diseases of the circulatory system; Z91.19 Patient's noncompliance with other medical treatment and regimen
CPT/HCPCS: 36415; 36600; 87806; 96361; 96365; 96375; 99291; J7121; 71045; 76815; 80048; 80053; 80307; 80320; 81001; 82728; 82803; 83540; 83550; 83605; 83615; 83880; 85014; 85018; 85025; 86592; 86762; 86780; 86803; 86850; 86900; 87040; 87340; 87521; 87635; 88112; 88305; 88312; 93005; 93306; 94640; G0378; J0690; J0696; J1100; J1170; J1756; J1885; J2175; J2405; J3010; U0005; G0475; G0480; J0330; J1940; J2270; J2370; J2590; J2765; J7030; J7120; U0003